=== PATIENT | male | born 1965 | race Hispanic/Latino ===

== ENCOUNTER 2022-06-16 02:07 | Emergency (ER) | payer MEDICAID, OTHER ==
[~2022-06-16] VITALS: Ht 170.2 cm; Wt 79.4 kg
[2022-06-16] MEDS ORDERED: ACETAMINOPHEN 500 MG TABLET ONE (02:19)
[2022-06-16] MEDS ORDERED: CLONIDINE HCL 0.2 MG TABLET PO ONE (02:30)
[2022-06-16] MEDS ORDERED: ACETAMINOPHEN 500 MG TABLET PO ONE (02:30)
[2022-06-16 02:44] LABS: BASOPHILS % (AUTO) 0.5 % (0.0-5.0); HEMATOCRIT 44.1 % (42-54); LYMPHOCYTES % (AUTO) 9.7 % (21.0-51.0); MEAN CORPUSCULAR HGB CONC 35.6 g/dL (32.0-36.0); MEAN CORPUSCULAR VOLUME 81.4 fL (79-99); MONOCYTES % (AUTO) 6.7 % (3.0-13.0); NEUTROPHILS % (AUTO) 80.9 % (40.0-77.0); PLATELET COUNT (AUTO) 177 K/uL (130-400); RED BLOOD CELL COUNT(AUTO) 5.42 MIL/uL (4.50-6.20); WHITE BLOOD COUNT (AUTO) 6.6 K/uL (4.8-10.8)
[2022-06-16 02:59] LABS: CREATININE 1.2 mg/dL (0.5-1.5); POTASSIUM 3.5 mmol/L (3.5-5.1)
[2022-06-16 03:06] LABS: ALBUMIN 3.9 g/dL (3.5-5.0); TOTAL PROTEIN, SERUM 7.1 g/dL (6.0-8.3)
[2022-06-16 03:21] VITALS: BP 143/98
[2022-06-16] MEDS ORDERED: DiphenhydrAMINE HCL 50 MG/ML VIAL IV ONE (03:30)
[2022-06-16] MEDS ORDERED: PROCHLORPERAZINE 10MG/2ML INJ IV ONE (03:30)
[2022-06-16] MEDS ORDERED: PROCHLORPERAZINE 10MG/2ML INJ ONE (03:34)
[2022-06-16] MEDS ORDERED: DiphenhydrAMINE HCL 50 MG/ML VIAL ONE (03:34)
[2022-06-16] MEDS ORDERED: PROC5TAB54 PO (03:57)
== END 2022-06-16 04:05 | disposition home or self-care (01) ==
LOC: EDH 02:07
DX: G43.909 Migraine, unspecified, not intractable, without status migrainosus (principal); I10 Essential (primary) hypertension; Z86.73 Personal history of transient ischemic attack (TIA), and cerebral infarction without residual deficits
CPT/HCPCS: 99284; 96374; 70450; 96375; 84484; 80053; 85025; 36415; J1200; J0780